=== PATIENT | male | born 1955 | race African-American/Black ===

== ENCOUNTER 2019-11-23 18:42 | Observation (INO) ==
[2019-11-23 19:41] LABS: Basophils % 0.2 % (0.0-0.8); Eosinophils # 0.2 10*3/uL (0.0-0.87); Hematocrit 31.6 VOL% (42.0-52.0); Hemoglobin 9.9 GM/DL (14.0-18.0); Immature Granulocytes % 0.4 %; Immature Granulocytes Absolute 0.02 #; Lymphocytes # 1.2 10*3/uL (1.4-4.0); Lymphocytes % 21.8 % (21.2-54.2); Mean Corpuscular HGB Conc 31.3 GM/DL (32-36); Mean Corpuscular Volume 86.8 FL (87-102); Mean Platelet Volume 10.4 FL (9.6-12.0); Monocytes % 12.6 % (1.7-12.7); Platelet Count 172 T/CUMM (130-400); Red Blood Count 3.64 MC/CUMM (3.8-5.5); White Blood Count 5.4 T/CUMM (4-12)
[2019-11-23 19:50] LABS: INR 0.9; PT Patient Result 10.3 SECS (9.6-12.2)
[2019-11-23 20:04] LABS: Alanine Aminotransferase 32 U/L (16-61); Albumin 3.1 G/DL (3.4-5.0); Alkaline Phosphatase 111 U/L (45-117); Aspartate Amino Transferase 19 U/L (0-37); Blood Urea Nitrogen 17 MG/DL (7-18); Calcium 11.4 MG/DL (8.5-10.1); Estimated Glom Filtration Rate 108 ML/MIN; Glucose 111 MG/DL (74-106); Osmolality,Calculated 281.4 MOS/KG (273-304); Thyroid Stimulating Hormone < 0.005 uIU/ml (0.358-3.74); Total Protein 7.6 G/DL (6.4-8.3); Troponin I < 0.015 NG/ML (0.00-0.045)
[2019-11-23 20:05] LABS: Prostate Specific Antigen Diag < 0.1 NG/ML (0-4)
[2019-11-23 22:24] LABS: Apearance,Urine CLEAR (Clear); Bilirubin,Urine Negative (Negative); Blood, Urine Negative (Negative); Glucose,Urine (UA) Negative (Negative); Ketones,Urine Negative (Negative); Mucus,Urine Occasional /LPF (Occasional); Nitrite,Urine Negative (Negative); Protein,Urine Negative; RBC,Urine 2 /HPF (0-4); Urine Color Yellow (Yellow); Urine Specific Gravity 1.014 (1.001-1.035); WBC,Urine 3 /HPF (0-6)
[2019-11-23 23:07] LABS: Barbiturates Screen,Urine Negative (Negative); Benzodiazepines Screen,Urine Negative (Negative); Cannabinoid Screen,Urine Negative (Negative); Opiate Screen,Urine Negative (Negative); Phencyclidine Screen,Urine Negative (Negative)
[2019-11-24] MEDS ORDERED: GLUCAGON 1 MG VIAL IM PRN (00:14)
[2019-11-24] MEDS ORDERED: DOCUSATE SODIUM 100 MG CAPSULE PO PRN (00:14)
[2019-11-24] MEDS ORDERED: MAGNESIUM SULF RIDER 4 GM in PREMIX 1 EACH IV PRN (00:14)
[2019-11-24] MEDS ORDERED: DEXTROSE 50% 25 GM/50 ML SYRINGE IV PRN (00:14)
[2019-11-24] MEDS ORDERED: ZALEPLON 5 MG CAPSULE PO PRN (00:14)
[2019-11-24] MEDS ORDERED: ACETAMINOPHEN 325 MG TABLET PO PRN (00:14)
[2019-11-24] MEDS ORDERED: MAGNESIUM SULF RIDER 2 GM in PREMIX 1 EACH IV PRN (00:14)
[2019-11-24] MEDS ORDERED: ONDANSETRON 4 MG/2 ML VIAL IV PRN (00:14)
[2019-11-24] MEDS ORDERED: hydrALAZINE 20 MG/1 ML VIAL IV PRN (00:14)
[2019-11-24 04:56] LABS: Basophils % 0.2 % (0.0-0.8); Eosinophils # 0.2 10*3/uL (0.0-0.87); Eosinophils % 4.2 % (0.00-10.9); Hematocrit 27.7 VOL% (42.0-52.0); Hemoglobin 9.1 GM/DL (14.0-18.0); Immature Granulocytes % 0.2 %; Immature Granulocytes Absolute 0.01 #; Lymphocytes # 1.3 10*3/uL (1.4-4.0); Lymphocytes % 27.8 % (21.2-54.2); Mean Corpuscular HGB Conc 32.9 GM/DL (32-36); Mean Corpuscular Volume 84.2 FL (87-102); Mean Platelet Volume 10.6 FL (9.6-12.0); Monocytes % 13.8 % (1.7-12.7); Neutrophils % 53.8 % (38.7-73.9); Platelet Count 148 T/CUMM (130-400); Red Blood Count 3.29 MC/CUMM (3.8-5.5); Red Cell Distribution Width 12.1 % (9.3-17.3); White Blood Count 4.6 T/CUMM (4-12)
[2019-11-24 05:10] LABS: Calcium 11.3 MG/DL (8.5-10.1); Osmolality,Calculated 285.1 MOS/KG (273-304)
[2019-11-24] MEDS ORDERED: DEXTROSE 10% 250 ML BAG IV PRN (05:25)
[2019-11-24] MEDS ORDERED: POTASSIUM CHLORIDE 20 MEQ TABLET PO PRN (05:25)
[2019-11-24 06:52] LABS: % Iron Saturation 18.4 % (18-50); Ferritin 116.3 ng/ml (26-388)
[2019-11-24 06:53] LABS: Basophils % 0.2 % (0.0-0.8); Eosinophils # 0.2 10*3/uL (0.0-0.87); Eosinophils % 4.2 % (0.00-10.9); Hematocrit 27.7 VOL% (42.0-52.0); Hemoglobin 9.1 GM/DL (14.0-18.0); Immature Granulocytes % 0.2 %; Immature Granulocytes Absolute 0.01 #; Lymphocytes # 1.3 10*3/uL (1.4-4.0); Lymphocytes % 27.8 % (21.2-54.2); Mean Corpuscular HGB Conc 32.9 GM/DL (32-36); Mean Corpuscular Volume 84.2 FL (87-102); Mean Platelet Volume 10.6 FL (9.6-12.0); Monocytes % 13.8 % (1.7-12.7); Neutrophils % 53.8 % (38.7-73.9); Platelet Count 148 T/CUMM (130-400); Red Blood Count 3.29 MC/CUMM (3.8-5.5); Red Cell Distribution Width 12.1 % (9.3-17.3); White Blood Count 4.6 T/CUMM (4-12)
[2019-11-24 07:54] LABS: Sedimentation Rate-Westergren 61 MM/HR (0-20)
[2019-11-24] MEDS ORDERED: glyBURIDE 5 MG TABLET PO SCH (08:00)
[2019-11-24] MEDS: INSULIN LISPRO 100 UNIT/ML SUBCUT SCH ×2 (08:13→12:39)
[2019-11-24 08:26] LABS: Folate 15.1 NG/ML (5.4-24.0); Vitamin B12 299 PG/ML (211-911)
[2019-11-24] MEDS ORDERED: methIMAzole 10 MG TABLET PO SCH (09:00)
[2019-11-24] MEDS ORDERED: SIMVASTATIN 20 MG TABLET PO SCH (09:00)
[2019-11-24] MEDS ORDERED: PROPRANOLOL 20 MG TABLET PO SCH (09:00)
[2019-11-24] MEDS ORDERED: ENOXAPARIN 40 MG/0.4 ML SYRINGE SUBCUT SCH (09:00)
[2019-11-24] MEDS ORDERED: atenoloL 25 MG TABLET PO SCH (09:00)
[2019-11-24] MEDS ORDERED: hydroCHLOROthiazide 25 MG TABLET PO SCH (09:00)
[2019-11-24] MEDS ORDERED: amLODIPine 10 MG TABLET PO SCH (09:00)
[2019-11-24] MEDS ORDERED: ASPIRIN EC 81 MG TABLET PO SCH (09:00)
[2019-11-24] MEDS ORDERED: lisinopriL 5 MG TABLET PO SCH (09:00)
[2019-11-24 09:50] LABS: Hemoglobin A1 (Alkaline) 97.2 % (96.5-98.5); Hemoglobin A2 (Alkaline) 2.8 % (1.5-3.5)
[2019-11-24] MEDS ORDERED: POTASSIUM CHLORIDE 20 MEQ TABLET PO ONE (09:52)
[2019-11-24 11:30] VITALS: BP 138/77
== END 2019-11-24 14:30 | disposition home or self-care (01) ==
LOC: N.EDINP 18:42 → N.ED 18:42 → N.4E 11-24 00:11
PROVIDERS: ADMIT Internal Medicine; ATTEND Internal Medicine